=== PATIENT | male | born 1990 | race Caucasian/White ===

== ENCOUNTER 2017-09-10 07:39 | Outpatient (CLI) | payer OTHER ==
--- NOTE | 2017-09-10 11:10 | MRI ---
MRI LUMBAR SPINE WITHOUT CONTRAST: Date: 09/10/17 HISTORY: Lumbar radiculopathy. Low back pain radiating down right hip and leg. Some symptoms involving the lef t hip. COMPARISON: None. TECHNIQUE: MRI lumbar spine is performed without intravenous Gadolinium administration. Multisequential, multipl luz elena imaging is performed. FINDINGS: Appropriate T1 marrow signal intensity of the lumbar vertebra. Lumbar spine vertebral body height is maintained. There is no fracture. No significant STIR hyperintensity to imply edema or ligamentous in jury. Symmetric signal intensity of the psoas muscles. Appropriate signal intensity of the visualized solid organs. T12-L1: Adequate disc hydration. No significant central canal stenosis or foraminal narrowing. L1-L2: Adequate disc hydration. No significant central canal stenosis or foraminal narrowing. L2-L3: Adequate disc hydration. No significant central canal stenosis or foraminal narrowing. L3-L4: Disc desiccation with mild loss of disc space height. Generalized disc bulge with a small central dis c protrusion. Minimal ligamentum flavum thickening and facet hypertrophy. Minimal central canal steno sis. Neural foramina are patent bilaterally. L4-L5: Desiccation with mild loss of disc space height. Generalized disc bulge does not cause any significan t central canal stenosis. There is mild ligamentum flavum thickening and facet hypertrophy. Neural fo ramina are patent bilaterally. L5-S1: Adequate disc hydration. No significant central canal stenosis. Neural foramina are patent. Intrinsic T1 and T2 hyperintensity involving the posterior elements on the right pedicle, without ass ociated STIR hyperintensity. A small focal hemangioma may be present. IMPRESSION: 1. No significant central canal stenosis or foraminal narrowing. 2. Degenerative changes of the lumbar spine as above. POS: [facility]
== END 2017-09-10 07:40 | disposition home or self-care (01) ==
LOC: SCSMRI 07:39
PROVIDERS: ATTEND Family Medicine
DX: M47.26 Other spondylosis with radiculopathy, lumbar region (principal)
CPT/HCPCS: 72148